=== PATIENT | male | born 1970 | race Caucasian/White ===

== ENCOUNTER 2022-01-05 18:30 | Emergency (ER) | payer SELFPAY ==
[~2022-01-05] VITALS: Ht 175.3 cm; Wt 89.0 kg
[2022-01-05 19:18] LABS: BASOPHILS % 0.3 % (0.0-2.0); HEMATOCRIT. 25.6 % (42.0-52.0); HEMOGLOBIN. 8.9 g/dL (14.0-18.0); LYMPHOCYTES % 9.8 % (20.0-50.0); MEAN CORPUSCULAR HEMOGLOBIN 29.9 pg (28.0-32.0); MEAN CORPUSCULAR VOLUME 85.5 fL (80.0-94.0); MONOCYTES % 5.7 % (2.0-8.0); NEUTROPHILS % 84.2 % (40.0-76.0); PLATELET 316 x1000/uL (130-400); RED CELL DISTRIBUTION WIDTH 12.8 % (11.6-14.6)
[2022-01-05 19:32] LABS: CHLORIDE 101 mEq/L (98-107)
[2022-01-05 19:40] LABS: ETHANOL BLOOD < 10 mg/dL
[2022-01-05] MEDS ORDERED: LEVETIRACETAM 1000MG PREMIX 100 ML IV ONE (22:45)
[2022-01-05] MEDS ORDERED: LABETALOL 5MG/ML SYR 20 MG/4 ML SYRINGE IV ONE ×2 (22:45→23:00)
[2022-01-05] MEDS ORDERED: NICARDIPINE 50 MG in SODIUM CHLORIDE 0.9% 230 ML IV PRN ×4 (23:15)
[2022-01-05 23:35] VITALS: BP 221/97
== END 2022-01-06 00:17 | disposition short-term general hospital (02) ==
LOC: ER 18:30
DX: I62.9 Nontraumatic intracranial hemorrhage, unspecified (principal); I60.9 Nontraumatic subarachnoid hemorrhage, unspecified; I49.8 Other specified cardiac arrhythmias
CPT/HCPCS: 36415; 70450; 80053; 80320; 84484; 85025; 87426; 93005; 96365; 96367; 96375; J1953; J3490; J7050; G0480